=== PATIENT | male | born 1985 | race Caucasian/White ===

== ENCOUNTER 2020-06-25 14:00 | Emergency (ER) | payer BC, OTHER ==
[2020-06-25 14:16] VITALS: BP 121/75; PULSE 85; TEMP 98.6; BMI 25.4
[2020-06-25] MEDS ORDERED: ACETAMINOPHEN 500 MG TABLET (FP) PO ONE (14:27)
[2020-06-25] MEDS ORDERED: CIPROFLOXACIN 500 MG TABLET (RESTRICTED TO ID) PO ONE (14:27)
[2020-06-25] MEDS ORDERED: DIPHTH,PERTUSS(ACELL),TET 0.5 ML DISP.SYRIN IM ONE ×2 (14:27→14:33)
[2020-06-25] MEDS ORDERED: ACETAMINOPHEN 325 MG TABLET (FP) ONE (14:33)
== END 2020-06-25 16:02 | disposition home or self-care (01) ==
LOC: FER 14:00
PROC: 3E0234Z Introduction of Serum, Toxoid and Vaccine into Muscle, Percutaneous Approach (ICD-10-PCS; principal; 2020-06-25)
DX: S91.332A Puncture wound without foreign body, left foot, initial encounter (principal)
CPT/HCPCS: 90715; 99284-25

== ENCOUNTER 2022-05-27 08:09 | Inpatient (IN) | payer BC ==
[2022-05-27 08:20] VITALS: BMI 23.0
[2022-05-27] MEDS ORDERED: ACETAMINOPHEN 1000 MG/100 ML BAG IVPB ONE ×3 (09:01→14:41)
[2022-05-27] MEDS ORDERED: SODIUM CHLORIDE 1,000 ML IV STA (09:01)
[2022-05-27] MEDS ORDERED: CEFTRIAXONE 1,000 MG in DEXTROSE 5%-WATER - 50 ML IVPB ONE (09:02)
[2022-05-27] MEDS ORDERED: ACETAMINOPHEN INJECTION 100 ML IVPB ONE (09:25)
[2022-05-27] MEDS ORDERED: CEFTRIAXONE 2 GM/100 ML BAG IVPB ONE (09:39)
[2022-05-27] MEDS ORDERED: CEFTRIAXONE 1 GM/50 ML BAG ONE ×2 (09:40→09:45)
[2022-05-27 09:49] LABS: BASO % 0.4 % (0-2.0); EOS % 0.3 % (0-4.5); HEMATOCRIT 46.3 % (35.4-49); HEMOGLOBIN 16.1 GM/dL (11.7-16.9); LYMPH % 13.5 % (8-40); MCH 30.3 pg (25.7-33.7); MCHC 34.8 g/dl (32.0-35.9); MEAN CELL VOLUME 87.3 fl (80-96); MEAN PLT VOLUME 9.6 fl (7.5-11.1); MONO % 9.7 % (3.8-10.2); NEUT % 76.1 % (42.8-82.8); PLATELET COUNT 192 10^3/uL (134-434); RBC 5.31 M/mm3 (4.00-5.60); RDW 13.6 % (11.9-15.9); WHITE BLOOD COUNT 13.1 K/mm3 (4.0-10.0)
[2022-05-27 09:56] LABS: INR 1.21 (0.83-1.09)
[2022-05-27 09:58] LABS: ACTIVATED PTT 30.7 SECONDS (25.2-36.5)
[2022-05-27 10:08] LABS: CALCIUM 9.3 mg/dL (8.5-10.1)
[2022-05-27 10:09] LABS: ALBUMIN 4.2 g/dl (3.4-5.0); BLOOD UREA NITROGEN 11.8 mg/dL (7-18)
[2022-05-27 10:12] LABS: CREATININE 0.7 mg/dL (0.55-1.3)
[2022-05-27 10:13] LABS: TOT PROT 7.2 g/dl (6.4-8.2)
[2022-05-27 10:14] LABS: BILIRUBIN,TOTAL 0.7 mg/dL (0.2-1)
[2022-05-27 12:40] LABS: HIV INTERPRETATION NEGATIVE (NEGATIVE)
[2022-05-27] MEDS ORDERED: LIDOCAINE HCL/PF 2% SDV 5ML VIAL ONE (13:06)
[2022-05-27] MEDS ORDERED: MIDAZOLAM HCL 2 MG/2 ML SINGLE DOSE VIAL ONE (13:06)
[2022-05-27] MEDS ORDERED: PROPOFOL 20 ML ONE (13:06)
[2022-05-27] MEDS ORDERED: ACETAMINOPHEN 325 MG TABLET (FP) PO PRN (13:23)
[2022-05-27] MEDS ORDERED: KETOROLAC TROMETHAMINE 15 MG/ML VIAL IVPUSH PRN ×2 (13:23→14:41)
[2022-05-27] MEDS ORDERED: LIDOCAINE HCL 1%, 10 MG/ML (10ML VIAL) MDV ONE (13:37)
[2022-05-27] MEDS ORDERED: BUPIVACAINE HCL/PF 0.5% (5MG/ML) 10 ML VIAL ONE (13:38)
[2022-05-27] MEDS ORDERED: BUPIVACAINE HCL/PF 0.5% (5MG/ML) 10 ML VIAL IJ ONE (14:12)
[2022-05-27] MEDS ORDERED: LIDOCAINE HCL 1%, 10 MG/ML (20ML VIAL) NR ONE (14:12)
[2022-05-27] MEDS ORDERED: ONDANSETRON 4 MG/2 ML VIAL ONE (14:15)
[2022-05-27] MEDS ORDERED: KETOROLAC TROMETHAMINE 30 MG/1 ML VIAL ONE (14:15)
[2022-05-27] MEDS ORDERED: DEXAMETHASONE SOD PHOSPHATE 4 MG/1 ML VIAL ONE (14:15)
[2022-05-27] MEDS ORDERED: HYDROGEN PEROXIDE 473 ML PO ONE (14:16)
[2022-05-27] MEDS ORDERED: ONDANSETRON 4 MG/2 ML VIAL IVPUSH PRN ×2 (14:28→14:41)
[2022-05-27] MEDS ORDERED: PROMETHAZINE HCL 25 MG/1 ML VIAL IVPB PRN ×2 (14:28→14:41)
[2022-05-27] MEDS ORDERED: oxyCODONE HCL 5 MG TABLET PO PRN (14:33)
[2022-05-27] MEDS ORDERED: LACTATED RINGERS SOLUTION 1,000 ML IV SCH (14:41)
[2022-05-27] MEDS: LACTATED RINGERS SOLUTION 1,000 ML IV SCH ×2 (16:20→17:16)
[2022-05-27] MEDS: VANCOMYCIN/WATER FOR INJ (PEG) 1,000 MG/200 ML BAG IVPB SCH (21:23)
[2022-05-27] MEDS ORDERED: VANCOMYCIN/WATER FOR INJ (PEG) 1,000 MG/200 ML BAG IVPB SCH (22:00)
[2022-05-27] MEDS ORDERED: VANCOMYCIN 1 GM in D5W (PRE-DOCKED) 1,000 MG/250 ML (RESTRICTED TO ID ONLY IVPB SCH (22:00)
[2022-05-28] MEDS: VANCOMYCIN 1 GM in D5W (PRE-DOCKED) 1,000 MG/250 ML (RESTRICTED TO ID ONLY IVPB SCH ×2 (10:00→12:38)
[2022-05-28] MEDS ORDERED: ENOXAPARIN NA (PORCINE) 40 MG/0.4 ML DISP.SYRIN SQ SCH (10:00)
[2022-05-28] MEDS: VANCOMYCIN/WATER FOR INJ (PEG) 1,000 MG/200 ML BAG IVPB SCH (10:14)
[2022-05-28] MEDS: ENOXAPARIN NA (PORCINE) 40 MG/0.4 ML DISP.SYRIN SQ SCH (10:15)
[2022-05-28 10:21] LABS: BASO % 0.2 % (0-2.0); EOS % 0.1 % (0-4.5); HEMATOCRIT 42.1 % (35.4-49); HEMOGLOBIN 14.5 GM/dL (11.7-16.9); LYMPH % 13.1 % (8-40); MCH 29.7 pg (25.7-33.7); MCHC 34.5 g/dl (32.0-35.9); MEAN CELL VOLUME 86.3 fl (80-96); MEAN PLT VOLUME 10.3 fl (7.5-11.1); MONO % 7.3 % (3.8-10.2); NEUT % 79.3 % (42.8-82.8); PLATELET COUNT 184 10^3/uL (134-434); RBC 4.87 M/mm3 (4.00-5.60); RDW 13.7 % (11.9-15.9); WHITE BLOOD COUNT 14.6 K/mm3 (4.0-10.0)
[2022-05-28 10:32] LABS: INR 1.19 (0.83-1.09); PROTHROMBIN TIME (PATIENT) 13.8 SEC (9.7-13.0)
[2022-05-28 10:48] LABS: CALCIUM 8.5 mg/dL (8.5-10.1)
[2022-05-28 10:49] LABS: MAGNESIUM 1.8 mg/dL (1.8-2.4)
[2022-05-28 10:52] LABS: CREATININE 0.5 mg/dL (0.55-1.3); PHOSPHOROUS 3.2 mg/dL (2.5-4.9)
[2022-05-28 10:53] LABS: TOT PROT 5.8 g/dl (6.4-8.2)
[2022-05-28 10:54] LABS: BILIRUBIN,TOTAL 0.6 mg/dL (0.2-1)
[2022-05-28 10:56] LABS: ALBUMIN 3.2 g/dl (3.4-5.0)
[2022-05-28] MEDS: AMOX TR/POT CLAV 875MG/125MG TABLETS (FP) PO SCH (17:15)
[2022-05-29] MEDS: ACETAMINOPHEN 325 MG TABLET (FP) PO PRN ×2 (06:48→12:18)
[2022-05-29] MEDS: AMOX TR/POT CLAV 875MG/125MG TABLETS (FP) PO SCH (09:10)
[2022-05-29] MEDS: ENOXAPARIN NA (PORCINE) 40 MG/0.4 ML DISP.SYRIN SQ SCH (09:11)
[2022-05-29 10:11] VITALS: BP 107/55; PULSE 62; RESP 20; TEMP 97.2
== END 2022-05-29 12:59 | disposition home health service (06) | DRG 603 ==
LOC: JER 08:09 → JERBED 11:54 → J8W 15:37
PROVIDERS: ADMIT Internal Medicine; ATTEND Nurse Practitioner Acute Care
PROC: 0J990ZZ Drainage of Buttock Subcutaneous Tissue and Fascia, Open Approach (ICD-10-PCS; principal; 2022-05-27 13:30)
DX: L05.01 Pilonidal cyst with abscess (principal); M54.50 Low back pain, unspecified
CPT/HCPCS: 36415; 74177-TC; 80053; 83735; 84100; 85025; 85610; 85730; 86850; 86900; 86901; 87070; 87076; 87205; 87389; 87491; 87591; 93005; 93010; 94760; 99285-25; C9803-CS; Q9967; U0003; U0005